=== PATIENT | female | born 1955 | race African-American/Black ===

== ENCOUNTER 2021-01-06 13:59 | Emergency (ER) | payer BC, MEDICAID ==
[~2021-01-06] VITALS: Ht 149.9 cm; Wt 83.0 kg
[2021-01-06] MEDS ORDERED: TOPUD MT (15:35)
[2021-01-06] MEDS ORDERED: HYDR30CR80 TP (15:35)
[2021-01-06] MEDS ORDERED: ACETAMINOPHEN WITH CODEINE 300/30MG TABLET PO ONE (15:45)
[2021-01-06 16:49] VITALS: BP 189/73
== END 2021-01-06 16:50 | disposition home or self-care (01) ==
LOC: ER 13:59
DX: K64.4 Residual hemorrhoidal skin tags (principal); K21.9 Gastro-esophageal reflux disease without esophagitis; E78.00 Pure hypercholesterolemia, unspecified; I10 Essential (primary) hypertension
CPT/HCPCS: 99283